=== PATIENT | male | born 1975 | race Caucasian/White ===

== ENCOUNTER 2020-05-17 14:21 | Emergency (ER) | payer OTHER ==
[~2020-05-17] VITALS: Ht 172.7 cm; Wt 90.7 kg
[2020-05-17 16:30] VITALS: BP 147/87
== END 2020-05-17 16:30 | disposition home or self-care (01) ==
LOC: ER 14:21
DX: S13.4XXA Sprain of ligaments of cervical spine, initial encounter (principal); S29.012A Strain of muscle and tendon of back wall of thorax, initial encounter; T14.8XXA Other injury of unspecified body region, initial encounter; R20.0 Anesthesia of skin; F17.210 Nicotine dependence, cigarettes, uncomplicated; V49.9XXA Car occupant (driver) (passenger) injured in unspecified traffic accident, initial encounter; Y93.89 Activity, other specified; Y92.89 Other specified places as the place of occurrence of the external cause; Y99.8 Other external cause status

== ENCOUNTER → 2020-10-01 | Outpatient (CLI) | payer BC, OTHER | LOC: ULTRA 14:30 | PROVIDERS: ATTEND Internal Medicine | DX: R10.13 Epigastric pain (principal) ==